=== PATIENT | male | born 1970 | race Caucasian/White ===

== ENCOUNTER 2016-09-04 16:47 | Emergency (ER) | payer OTHER ==
[~2016-09-04] VITALS: Ht 182.9 cm; Wt 89.0 kg
[2016-09-04 16:50] VITALS: BP 133/96; PULSE 81; RESP 16; TEMP 98.2; O2SAT 97
--- NOTE | 2016-09-04 17:07 | PD ---
HPI Chief Complaint: Laceration/Skin Injury Time Seen by Provider: 17:07 Travel History International Travel<30 days: No Contact w/Intl Traveler<30days: No Traveled to known affect area: No History of Present Illness HPI 46-year-old male presents to the ED for evaluation of left great toe injury. Patient states he was at work just before presentation, wearing shoes, when a 250 pound wooden beam fell, landing on his left great and second toes. On presentation he endorses 2/10 pain. He does state that he has a very high pain tolerance. He treated with 2 ibuprofen on scene. He denies numbness, tingling , weakness, limitations to range of motion of the toe. States tetanus is up-to- date. [facility] He denies chronic health problems. He takes citalopram daily. NKDA. PFSH Social History Tobacco Use: No Allergies-Medications (Allergen,Severity, Reaction): Coded Allergies: No Known Allergies (Unverified , 09/04/16) Reported Meds & Prescriptions Reported Meds & Active Scripts Active Clindamycin (Clindamycin HCl) 150 Mg Cap 450 Mg PO Q6H 7 Days Ibuprofen 800 Mg Tab 800 Mg PO Q8H Review of Systems Except as stated in HPI: all other systems reviewed are Neg Physical Exam Narrative GENERAL: Well-nourished, well-developed white male sitting up in a stretcher in no acute distress. SKIN: Warm and dry. HEAD: Normocephalic. EYES: No scleral icterus. No injection or drainage. NECK: Supple, trachea midline. No JVD or lymphadenopathy. CARDIOVASCULAR: Regular rate and rhythm without murmurs, gallops, or rubs. RESPIRATORY: Breath sounds equal bilaterally. No accessory muscle use. GASTROINTESTINAL: Abdomen soft, non-tender, nondistended. MUSCULOSKELETAL: No cyanosis, or edema. FOCUSED LEFT LOWER EXTREMITY EXAM: 2+ DP pulse. There is a subungual hematoma of the great toe and faint ecchymosis of the distal tip of the second toe. There is a 1 cm laceration of the distal lateral tip of the great toe. Tender to palpation of the MP joint and tuft of the great toe. Patient is able to flex and extend the toes. Cap refill less than 2 seconds, sensation intact distally on all digits of the foot. BACK: Nontender without obvious deformity. No CVA tenderness. Data Data Last Documented VS Vital Signs Date Time Temp Pulse Resp B/P Pulse Ox O2 Delivery O2 Flow Rate FiO2 09/04/16 16:50 98.2 81 16 133/96 97 Orders Foot, Complete ([id number]) (09/04/16 17:49) Toe (Min 2vws) (09/04/16 17:49) Ice/Cold Pack (09/04/16 17:49) Lidocaine 1% Inj (50 Ml) (Xylocaine 1% I (09/04/16 18:15) Cefazolin Inj (Ancef Inj) (09/04/16 19:00) Post Op Boot (Shoe) (09/04/16 ) Shoe Cast (09/04/16 ) MDM Medical Decision Making Medical Screen Exam Complete: Yes Emergency Medical Condition: Yes Differential Diagnosis Subungual hematoma versus tuft fracture versus dislocation versus laceration versus compartment syndrome versus other Narrative Course 46-year-old male presents to the ED for evaluation of left great toe injury just before presentation. Patient states he was at work, wearing shoes, when a 250 pound wooden beam fell, landing on his left great and second toes. On presentation he endorses 2/10 pain. States tetanus is up-to-date. [facility] Vitals reviewed. Physical exam reveals a subungual hematoma of the great toe and faint ecchymosis of the distal tip of the second toe. There is a 1 cm laceration of the distal lateral tip of the great toe. Tender to palpation of the MP joint and tuft of the great toe. Patient is able to flex and extend the toes. Neurovascularly intact. Trephination of the subungual hematoma and laceration repair was performed. Please my procedure note for details. IV was established. Patient was administered a gram of Ancef IV. I spoke with Dr. Moreno, the on-call front loader residential driver. He recommends outpatient antibiotics, follow-up in the office. I discussed the results of the xrays and the plan of care with the patient who is agreeable. He is instructed to wear the postop shoe, take the antibiotics as prescribed, take pain medications as prescribed minimal weightbearing, avoid long periods of standing, follow-up with Dr. Moreno. Patient states that he has crutches at home. The patient was educated about possible complications and the importance of follow-up. Patient indicated understanding, is stable and discharged home. Procedures Procedure Narrative LACERATION LOCATION: Left great toe LENGTH: 1 cm NUMBER OF STITCHES/JAVON: 3 REPAIR: The area of the laceration was prepped with Betadine and sterilely draped. A digital block was performed with 1% lidocaine. Good anesthesia was obtained. The wound was copiously irrigated and explored without evidence of foreign body, tendon injury or neurovascular injury. Trephination of the subungual hematoma was performed with a disposable cautery. The wound was closed using 4-0 Prolene. This was a single layer repair. A sterile dressing and a postop shoe was applied. The patient was advised to keep the dressing clean and dry. Patient tolerated the procedure well. Diagnosis Primary Impression: Open fracture of great toe of left foot Qualified Code: S92.425B - Open nondisplaced fracture of distal phalanx of left great toe, initial encounter Additional Impressions: Subungual hematoma of great toe of left foot Qualified Code: S90.212A - Subungual hematoma of great toe of left foot, initial encounter Laceration of left great toe Qualified Code: S91.212A - Laceration of left great toe without foreign body with damage to nail, initial encounter Referrals: Rodriguez Manzano DPTobias Patient Instructions: General Instructions, Laceration (ED), Subungual Hematoma (ED), Toe Fracture (ED) Departure Forms: Tests/Procedures, Work Release Enter return to work date: Sep 08, 2016 Special Instructions: Minimal weightbearing, no prolonged periods of standing until cleared by the front loader residential driver. Additional Instructions: Rest, hydrate. Ice, elevate the extremity to relieve swelling and throbbing pain. Do not change the dressing for 2 days unless it becomes soiled or wet.. You may bathe normally. Do not submerge the wound. After bathing pat of wound dry. Allow the wound to air dry for 10-15 minutes. Apply a thin layer of antibiotic ointment and a clean, dry dressing. Always wash her hands before and after treating the wound. Take the antibiotics as they are prescribed, even if your symptoms resolve. And her milligram ibuprofen up to 3 times a day as needed for pain. Follow-up with Dr. Natacha tomorrow as discussed. Return to the ED for any urgent or emergent medical condition. Med/Other Pt SpecificInfo: Prescription(s) given Scripts Clindamycin 150 Mg [id number] Mg PO Q6H 7 Days Ref 0 Prov:Asha Enamorado MD 09/04/16 Ibuprofen 800 Mg [id number] Mg PO Q8H #15 TAB Ref 0 Prov:Asha Enamorado MD 09/04/16 Disposition: 01 DISCHARGE HOME Condition: Stable Evelyn Felix Sep 04, 2016 17:07 Evelyn Felix Sep 04, 2016 17:07
[2016-09-04] MEDS ORDERED: LIDOCAINE HCL 1% 50 ML VIAL INFIL ONE (18:15)
--- NOTE | 2016-09-04 18:18 | RADHPO ---
EXAM DATE/TIME: 09/04/2016 18:00 [facility] COMPARISON: No previous studies available for comparison. INDICATIONS : Left foot pain, dropped wooden beam on foot. MEDICAL HISTORY : None. SURGICAL HISTORY : None. ENCOUNTER: Initial ACUITY: 1 day PAIN SCORE: 10/10 LOCATION: Left great toe FINDINGS: There is a comminuted fracture of the distal tuft of the great toe with plantar displacement. An obli que sagittally oriented fracture extends proximal to the base of the bone and into the interphalangea l joint but is nondisplaced. No other fractures are seen. There are moderate degenerative changes of the first metatarsophalangeal joint and sesamoids. CONCLUSION: Fractured distal phalanx of the great toe including comminuted and displaced distal tuft and a nondis placed intra-articular component of the interphalangeal joint. Eber Ferreira MD on September 04, 2016 at 18:15 Board Certified Radiologist. This report was verified electronically.
--- NOTE | 2016-09-04 18:21 | RADHPO ---
EXAM DATE/TIME: 09/04/2016 17:55 [facility] COMPARISON: FOOT LEFT COMPLETE ([id number]), September 04, 2016, 18:00. INDICATIONS : Left foot, great toe pain. Dropped wooden beam on foot. MEDICAL HISTORY : None. SURGICAL HISTORY : None. ENCOUNTER: Initial ACUITY: 1 day PAIN SCORE: 10/10 LOCATION: Left great toe FINDINGS: There is a comminuted fracture of the distal tuft of the great toe with plantar displacement. An obli que sagittally oriented fracture extends proximal to the base of the bone and into the interphalangea l joint but is nondisplaced. No other fractures are seen. There are moderate degenerative changes of the first metatarsophalangeal joint and sesamoids. CONCLUSION: Comminuted and plantar displaced fracture of the distal tuft of the great toe. There is a nondisplace d fracture line extending intra-articular at the interphalangeal joint. Eber Ferreira MD on September 04, 2016 at 18:18 Board Certified Radiologist. This report was verified electronically.
[2016-09-04] MEDS ORDERED: IBUP800T23 PO (19:15)
[2016-09-04] MEDS ORDERED: CLIN1CAP5 PO (19:15)
== END 2016-09-04 20:39 | disposition home or self-care (01) ==
LOC: PHEFT 16:47
DX: S92.425B Nondisplaced fracture of distal phalanx of left great toe, initial encounter for open fracture (principal); S90.212A Contusion of left great toe with damage to nail, initial encounter; S91.112A Laceration without foreign body of left great toe without damage to nail, initial encounter; W22.8XXA Striking against or struck by other objects, initial encounter; Y93.9 Activity, unspecified; Y92.89 Other specified places as the place of occurrence of the external cause; Y99.0 Civilian activity done for income or pay
CPT/HCPCS: 11740; 12001; 73630; 73660; 96365; 99283; J0690; L3260

== ENCOUNTER 2016-10-09 19:10 | Emergency (ER) | payer OTHER ==
[~2016-10-09] VITALS: Ht 182.9 cm; Wt 87.0 kg
[~2016-10-09 19:10] MED LIST: CLIN1CAP5 PO; IBUP800T23 PO
[2016-10-09 19:22] VITALS: BP 129/90; PULSE 84; RESP 16; TEMP 98.6; O2SAT 96
[2016-10-09] MEDS ORDERED: CITA10TA4 PO (19:30)
--- NOTE | 2016-10-09 19:59 | PD ---
HPI Chief Complaint: Laceration/Skin Injury Time Seen by Provider: 19:56 Travel History International Travel<30 days: No Contact w/Intl Traveler<30days: No Traveled to known affect area: No History of Present Illness HPI 46-year-old male presents to the emergency department for evaluation of right hand second finger injury. Patient states that about an hour ago he accidentally crushed his distal second finger in a car door. States that he has a laceration to the tip of the finger. He does have pain located at the area of the laceration. States he is able to move all joints without difficulty. Denies any numbness or tingling. States his tetanus vaccination is up-to-date. No other complaints. PFSH Past Medical History Depression: Yes Diminished Hearing: No Immunizations Current: Yes Tetanus Vaccination: < 5 Years Influenza Vaccination: Yes Past Surgical History Surgical History: No Previous Surgery Social History Alcohol Use: Yes (4-5 5xs week) Tobacco Use: No Substance Use: No Allergies-Medications (Allergen,Severity, Reaction): Coded Allergies: No Known Allergies (Unverified , 10/09/16) Reported Meds & Prescriptions Reported Meds & Active Scripts Active Keflex (Cephalexin) 500 Mg Cap 500 Mg PO Q8H 7 Days Reported Citalopram (Citalopram Hydrobromide) 10 Mg Tab 10 Mg PO DAILY Review of Systems Except as stated in HPI: all other systems reviewed are Neg Physical Exam Narrative GENERAL: Well-nourished and well-developed pleasant male patient in no acute distress who is nontoxic appearing. SKIN: Warm and dry. HEAD: Normocephalic and atraumatic. EYES: No injection, drainage, or hyphema noted. PERRLA. EOMI. ENT: No nasal drainage noted. Oropharynx is clear. NECK: Supple and the trachea is midline. CARDIOVASCULAR: Regular rate and rhythm. RESPIRATORY: Breath sounds are equal bilaterally with no accessory muscle use, wheezing, rhonchi, or crackles. EXTREMITY: Right hand second finger with stellate laceration to the volar distal phalanx. There is bruising noted to the dorsal distal tip. Full range of motion in all joints. No joint swelling/injury. Normal opposition of thumb. Distal extremity neurovascularly intact with intact two point discrimination. NEUROLOGICAL: Awake, alert, and oriented. Normal speech and gait. Cranial nerves are grossly intact. Data Data Last Documented VS Vital Signs Date Time Temp Pulse Resp B/P Pulse Ox O2 Delivery O2 Flow Rate FiO2 10/09/16 19:22 98.6 84 16 129/90 96 Orders Bupivacaine Pf 0.5% Inj (Marcaine Pf 0.5 (10/09/16 20:00) Lidocaine 1% Inj (50 Ml) (Xylocaine 1% I (10/09/16 20:00) Finger ([id number]) (10/09/16 19:55) Cephalexin (Keflex) (10/09/16 20:45) MDM Medical Decision Making Medical Screen Exam Complete: Yes Emergency Medical Condition: Yes Differential Diagnosis Laceration versus abrasion versus distal tuft fracture Narrative Course 46-year-old male presents to the emergency department for evaluation of right hand second finger injury. Patient is afebrile, vital signs are stable. He has a laceration to the distal tip. We'll do an x-ray to rule out fracture. Laceration repairs performed, see procedure narrative. X-ray shows a second distal phalangeal fracture. This is an open fracture of the distal phalanx. Patient is given Keflex 500 mg orally here in the ED. He'll be discharged with a prescription for Keflex. Discussed proper wound care techniques. Advised to follow-up with his PCP and/ or hand surgeon. Patient verbalizes understanding and agreement with treatment plan. Procedures Procedure Narrative LACERATION LOCATION: Right hand volar distal second finger LENGTH: 2 cm NUMBER OF STITCHES/JAVON: 8 sutures REPAIR: The area of the laceration was prepped with Betadine and sterilely draped. A digital block was performed using 0.5% bupivacaine and lidocaine 1%. The wound was copiously irrigated and explored without evidence of foreign body, tendon injury or neurovascular injury. The wound was closed using 4. 0 Ethilon. This was a single layer repair. Antibiotic ointment and a sterile dressing was applied. The patient was advised to keep the dressing clean and dry. Patient tolerated the procedure well. Diagnosis Primary Impression: Open fracture of finger, distal phalanx Qualified Code: S62.660B - Open nondisplaced fracture of distal phalanx of right index finger, initial encounter Referrals: Koko Klein III, MD Hand Surgeon Patient Instructions: Finger Fracture (ED), Finger Laceration (ED), General Instructions Additional Instructions: Wash wound gently with soap and water. Apply topical antibiotic ointment twice daily. Have sutures removed in 7-10 days. Take medication as prescribed with food and a full glass of water. Follow-up with your Primary Care Physician. Return to the ED for any acute worsening of symptoms. Med/Other Pt SpecificInfo: Prescription(s) given Scripts Cephalexin (Keflex)500 Mg Til639 Mg PO Q8H 7 Days Ref 0 Prov:Jaison Gaines MD 10/09/16 Disposition: 01 DISCHARGE HOME Condition: Stable Dayana Lares Oct 09, 2016 19:59
[2016-10-09] MEDS ORDERED: BUPIVACAINE HCL PF 0.5% 10 ML VIAL INFIL ONE (20:00)
[2016-10-09] MEDS ORDERED: LIDOCAINE HCL 1% 50 ML VIAL INFIL ONE (20:00)
--- NOTE | 2016-10-09 20:14 | RADHPO ---
EXAM DATE/TIME: 10/09/2016 19:58 [facility] COMPARISON: No previous studies available for comparison. INDICATIONS : Right hand pain and laceration; slammed finger in car door. MEDICAL HISTORY : None. SURGICAL HISTORY : None. ENCOUNTER: Initial ACUITY: 1 day PAIN SCORE: 3/10 LOCATION: Right 2nd digit; hand. FINDINGS: There is a complete fracture of the distal tuft of the second digit. CONCLUSION: Second distal phalangeal fracture. Luis Griffin MD on October 09, 2016 at 20:11 Board Certified Radiologist. This report was verified electronically.
[2016-10-09] MEDS ORDERED: CEPHALEXIN MONOHYDRATE 500 MG CAP PO ONE (20:45)
[2016-10-09] MEDS ORDERED: CEPH-460 PO (20:49)
== END 2016-10-09 21:20 | disposition home or self-care (01) ==
LOC: PHEFT 19:10
DX: S62.660B Nondisplaced fracture of distal phalanx of right index finger, initial encounter for open fracture (principal); Z86.59 Personal history of other mental and behavioral disorders; W23.1XXA Caught, crushed, jammed, or pinched between stationary objects, initial encounter
CPT/HCPCS: 12001; 73140